=== PATIENT | female | born 1970 | race Caucasian/White ===

== ENCOUNTER → 2017-11-28 03:02 | Outpatient (CLI) | payer OTHER, SELFPAY ==
[2017-11-28 11:00] LABS: ALT 31 U/L (12-78); AST 12 U/L (15-37); Albumin 3.8 g/dL (3.4-5.0); Alkaline Phosphatase 71 U/L (46-116); Anion Gap 9.8 mmol/L (3-11); BUN 8 mg/dL (7-18); Bilirubin, Total 0.6 mg/dL (0.2-1.0); CO2 26.2 mmol/L (21.0-32.0); CREATININE 0.67 mg/dL (0.55-1.02); Calcium 8.7 mg/dL (8.5-10.1); Chloride 103 mmol/L (98-107); Cholesterol 224 mg/dL (50-200); Glucose 86 mg/dL (70-100); HDL Cholesterol 59 mg/dL (40-60); LDL CHOLESTEROL 151 mg/dL (<100); Potassium 4.3 mmol/L (3.5-5.1); Sodium 139 mmol/L (136-145); TSH (W/Ref FT4) 2.66 uIU/mL (0.358-3.74); Total Protein 6.8 g/dL (6.4-8.2); Triglyceride 85 mg/dL (30-150)
== END ==
DX: Z00.00 Encounter for general adult medical examination without abnormal findings (principal); F32.9 Major depressive disorder, single episode, unspecified; G43.909 Migraine, unspecified, not intractable, without status migrainosus; L28.0 Lichen simplex chronicus; M54.5 Low back pain; Z83.49 Family history of other endocrine, nutritional and metabolic diseases; Z13.220 Encounter for screening for lipoid disorders
CPT/HCPCS: 36415; 80053; 80061; 83721; 84443

== ENCOUNTER 2018-01-29 00:59 | Outpatient (CLI) | payer OTHER, SELFPAY ==
--- NOTE | 2018-01-29 11:25 | DI.MRI_ITS ---
SYMPTOM/DIAGNOSIS: SCIATICA, RADICULOPATHY, M54.16, M54.2, G89.29, CHRONIC LOW BACK PAIN LUMBOSACRAL SPINE MRI: MRI examination of the lumbosacral spine was performed according to the usual protocol. There is an apparent bilateral L 5 spondylolysis without spondylolisthesis. There is very prominent hypertrophic facet arthropathy at L 4-5 and to a lesser degree, L 5-S 1. There is a mild anterior pseudospondylolisthesis of L 4 on L 5. There is moderate central canal spinal stenosis at L 4-5 secondary to facet hypertrophy. Additionally I would note that there are small synovial cysts associated with both right and left facet joints at L 4-5. The left synovial cyst impinges the left lateral recess at this level. Neural foramina appear fairly well preserved throughout. No other significant central canal spinal stenosis is seen. There is a small right paracentral disc herniation at L 3-4. No additional disc herniation is seen. Conus medullaris appears intact. CONCLUSION: 1. Moderate to severe central canal spinal stenosis at L 4-5 secondary to facet hypertrophic changes and presumed synovial cysts as described above. 2. Small right paracentral disc herniation at L 3-4. 3. 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
== END 2018-01-29 01:19 ==
DX: M54.30 Sciatica, unspecified side (principal); M54.5 Low back pain; M54.16 Radiculopathy, lumbar region; M51.16 Intervertebral disc disorders with radiculopathy, lumbar region; M43.06 Spondylolysis, lumbar region; M48.061 Spinal stenosis, lumbar region without neurogenic claudication; G89.29 Other chronic pain
CPT/HCPCS: 72148

== ENCOUNTER 2018-05-23 01:59 | Outpatient (CLI) | payer OTHER, SELFPAY ==
[2018-05-23 09:08] LABS: ALT 41 U/L (12-78); AST 15 U/L (15-37); Albumin 3.6 g/dL (3.4-5.0); Alkaline Phosphatase 65 U/L (46-116); Anion Gap 8.7 mmol/L (3-11); BUN 12 mg/dL (7-18); Bilirubin, Total 0.5 mg/dL (0.2-1.0); CO2 28.3 mmol/L (21.0-32.0); CREATININE 0.69 mg/dL (0.55-1.02); Calcium 9.2 mg/dL (8.5-10.1); Chloride 105 mmol/L (98-107); Cholesterol 225 mg/dL (50-200); Glucose 90 mg/dL (70-100); HDL Cholesterol 57 mg/dL (40-60); LDL CHOLESTEROL 151 mg/dL (<100); Potassium 4.4 mmol/L (3.5-5.1); Sodium 142 mmol/L (136-145); Total Protein 6.7 g/dL (6.4-8.2); Triglyceride 96 mg/dL (30-150)
== END 2018-05-23 02:19 ==
DX: Z00.00 Encounter for general adult medical examination without abnormal findings (principal); I10 Essential (primary) hypertension; F32.9 Major depressive disorder, single episode, unspecified; G43.909 Migraine, unspecified, not intractable, without status migrainosus; M54.30 Sciatica, unspecified side; M54.5 Low back pain; M79.605 Pain in left leg
CPT/HCPCS: 36415; 80053; 80061; 83721

== ENCOUNTER 2018-07-17 01:35 | Outpatient (CLI) | payer OTHER, SELFPAY ==
--- NOTE | 2018-07-17 08:30 | DI.MAMMO_ITS ---
SYMPTOM/DIAGNOSIS: SCREENING, Z12.31 MAMMOGRAMS: Mammograms were interpreted according to the usual protocol including computer analysis with CAD system, tomosynthesis and C view imaging. The breast tissue is heterogenously radiodense which somewhat lowers the sensitivity of the study. There is no dominant mass. There are no suspicious calcifications and there has been no significant interval change when compared with prior images. IMPRESSION: Category 1. Yearly screening mammography is recommended. Breast density, Category C. SA ASSESSMENT OF FINDINGS: Negative. Category 1. Patient will receive a letter notifying them of these results. Bi-RADS category C. The breasts are heterogeneously dense, which may obscure small masses.
== END 2018-07-17 01:55 ==
DX: Z12.31 Encounter for screening mammogram for malignant neoplasm of breast (principal)
CPT/HCPCS: 77063; 77067

== ENCOUNTER 2019-08-23 09:03 | Outpatient (CLI) | payer OTHER, SELFPAY ==
--- NOTE | 2019-08-23 12:56 | DI.MAMMO_ITS ---
EXAM: MAMMO SCREENING CLINICAL HISTORY: screening,Z12.39 TECHNIQUE: Mammograms were interpreted according to the usual protocol including computer analysis w [employer] CAD system, tomosynthesis and C-view imaging. COMPARISON: 2013 through 2018 FINDINGS: The breasts are composed of heterogeneously dense fibroglandular densities, Breast Density category C . No suspicious masses or suspicious microcalcifications are seen. No skin thickening or abnormal axillary lymph nodes are seen. There has been no significant change from prior exams. IMPRESSION: BI-RADS Category 1: Negative mammogram. Yearly screening mammography is recommended. Breast density category C, heterogeneously dense tissue which decreases the sensitivity of the mammog elena. The mammogram demonstrates the patient's breast tissue is dense. Dense breast tissue is very common a nd is not abnormal but dense breast tissue can make it harder to find cancer on a mammogram. Also, de nse breast tissue may increase breast cancer risk. This information about the result of the mammogram report was provided to the patient to raise their awareness. Use this report when you speak with the patient about their risks for breast cancer, which includes their family history. At that time, you may recommend additional screening tests (Ultrasound or MRI) as they might be useful based on their r isk. A negative radiographic report should not delay biopsy if a dominant or clinically suspicious mass is present. Up to ten percent of cancers are not identified on mammography. A negative report may reinforce clinical impression. Adenosis and dense breasts may obscure an underlying neoplasm. False positive reports average 6 to 10%.
== END 2019-08-23 09:23 ==
DX: Z12.31 Encounter for screening mammogram for malignant neoplasm of breast (principal)
CPT/HCPCS: 77063; 77067

== ENCOUNTER 2019-09-04 01:06 | Outpatient (CLI) | payer OTHER, SELFPAY ==
[2019-09-04 08:26] LABS: ALT 32 U/L (14-59); AST 14 U/L (15-37); Albumin 3.6 g/dL (3.4-5.0); Alkaline Phosphatase 71 U/L (46-116); Anion Gap 8.6 mmol/L (3-11); BUN 12 mg/dL (7-18); Bilirubin, Total 0.5 mg/dL (0.2-1.0); CO2 27.4 mmol/L (21.0-32.0); CREATININE 0.61 mg/dL (0.55-1.02); Calcium 8.7 mg/dL (8.5-10.1); Calculated LDL 146 mg/dL (<100); Chloride 103 mmol/L (98-107); Cholesterol 218 mg/dL (<200); Glucose 92 mg/dL (74-106); HDL Cholesterol 54 mg/dL (40-60); Potassium 4.3 mmol/L (3.5-5.1); Sodium 139 mmol/L (136-145); TSH (W/Ref FT4) 3.02 uIU/mL (0.36-3.74); Total Protein 6.5 g/dL (6.4-8.2); Triglyceride 93 mg/dL (<150)
== END 2019-09-04 01:26 ==
DX: I10 Essential (primary) hypertension (principal); E03.9 Hypothyroidism, unspecified; G47.00 Insomnia, unspecified
CPT/HCPCS: 36415; 80053; 80061; 84443

== ENCOUNTER 2020-05-25 09:52 | Outpatient (REF) | payer OTHER, SELFPAY ==
--- NOTE | 2020-05-25 08:30 | PAPFT_PTH ---
PATIENT: Roxana Olivier LOC: [facility] U#:[id number] AGE/SX: 50/F ROOM: RE05/25/[address]: Reba Wu APRN : 1970 BED: DIS: 05/25/2020 SPEC #: [id number] RECD: 05/25/20 12:58 STATUS: SHAHID REKatrin #: [id number] MEETA: 05/25/20 08:[address]: Reba Wu DEPT: [facility] Cytology RECD BY: Cristina High Tissues: 1 - CX/ENDOCX FOR PAP SMEARS Procedures: PAP THIN PREP/UVM Screening HPV DNA PROBE Comments: [id number]
== END 2020-05-25 09:53 | disposition home or self-care (01) ==
LOC: LBN 09:52
DX: Z12.4 Encounter for screening for malignant neoplasm of cervix (principal); Z11.51 Encounter for screening for human papillomavirus (HPV)
CPT/HCPCS: 88142; 87624

== ENCOUNTER 2020-07-30 07:18 | Outpatient (CLI) | payer OTHER, SELFPAY ==
[2020-07-31 01:15] LABS: COVID-19 RT-PCR UVMMC Result Negative (Negative)
== END 2020-07-30 07:19 | disposition home or self-care (01) ==
DX: Z20.822 Contact with and (suspected) exposure to COVID-19 (principal)
CPT/HCPCS: U0003

== ENCOUNTER 2020-08-14 06:25 | Outpatient (CLI) | payer OTHER, SELFPAY ==
[2020-08-14 07:47] LABS: ALT 29 U/L (14-59); AST 12 U/L (15-37); Albumin 3.8 g/dL (3.4-5.0); Alkaline Phosphatase 68 U/L (46-116); Anion Gap 7.5 mmol/L (3-11); BUN 13 mg/dL (7-18); Bilirubin, Total 0.3 mg/dL (0.2-1.0); CO2 27.5 mmol/L (21.0-32.0); CREATININE 0.7 mg/dL (0.55-1.02); Calcium 9.1 mg/dL (8.5-10.1); Chloride 106 mmol/L (98-107); Glucose 97 mg/dL (74-106); Potassium 4.4 mmol/L (3.5-5.1); Sodium 141 mmol/L (136-145); Total Protein 6.8 g/dL (6.4-8.2)
== END 2020-08-14 06:26 | disposition home or self-care (01) ==
LOC: LBO 06:26
DX: Z00.00 Encounter for general adult medical examination without abnormal findings (principal); Z13.228 Encounter for screening for other metabolic disorders
CPT/HCPCS: 80053

== ENCOUNTER 2021-06-28 00:21 | Outpatient (CLI) | payer OTHER, SELFPAY ==
--- NOTE | 2021-06-28 08:15 | DI.MAMMO_ITS ---
Exam(s) MAMMO SCREENING EXAM: MAMMO SCREENING CLINICAL HISTORY: screening,Z12.39 TECHNIQUE: Mammograms were interpreted according to the usual protocol including computer analysis w [employer] CAD system, tomosynthesis and C-view imaging. COMPARISON: 2013 through 2019 FINDINGS: The breasts are composed of heterogeneously dense fibroglandular densities, Breast Density category C . No suspicious masses or suspicious microcalcifications are seen. No skin thickening or abnormal axillary lymph nodes are seen. There has been no significant change from prior exams. IMPRESSION: BI-RADS Category 1, Negative mammogram. Yearly screening mammography is recommended. Breast Density Category C, heterogeneously Dense. The mammogram demonstrates the patient's breast tissue is dense. Dense breast tissue is very common a nd is not abnormal but dense breast tissue can make it harder to find cancer on a mammogram. Also, de nse breast tissue may increase breast cancer risk. This information about the result of the mammogram report was provided to the patient to raise their awareness. Use this report when you speak with the patient about their risks for breast cancer, which includes their family history. At that time, you may recommend additional screening tests (Ultrasound or MRI) as they might be useful based on their r isk. A negative radiographic report should not delay biopsy if a dominant or clinically suspicious mass is present. Up to ten percent of cancers are not identified on mammography. A negative report may reinforce clinical impression. Adenosis and dense breasts may obscure an underlying neoplasm. False positive reports average 6 to 10%.
== END 2021-06-28 00:41 ==
DX: Z12.31 Encounter for screening mammogram for malignant neoplasm of breast (principal)
CPT/HCPCS: 77063; 77067

== ENCOUNTER 2021-12-02 04:10 | Outpatient (CLI) | payer OTHER, SELFPAY ==
[2021-12-02 13:03] LABS: ALT 37 U/L (14-59); AST 17 U/L (15-37); Albumin 3.8 g/dL (3.4-5.0); Alkaline Phosphatase 68 U/L (46-116); Anion Gap 4.1 mmol/L (3-11); BUN 10 mg/dL (7-18); Bilirubin, Total 0.5 mg/dL (0.2-1.0); CO2 32.9 mmol/L (21.0-32.0); CREATININE 0.7 mg/dL (0.55-1.02); Calcium 8.8 mg/dL (8.5-10.1); Chloride 105 mmol/L (98-107); Glucose 101 mg/dL (74-106); Potassium 4.1 mmol/L (3.5-5.1); Sodium 142 mmol/L (136-145); TSH (W/Ref FT4) 3.03 uIU/mL (0.36-3.74); Total Protein 7.1 g/dL (6.4-8.2)
== END 2021-12-02 04:11 | disposition home or self-care (01) ==
LOC: LOS 04:10
DX: Z00.00 Encounter for general adult medical examination without abnormal findings (principal); G47.00 Insomnia, unspecified; E66.9 Obesity, unspecified; F32.89 Other specified depressive episodes
CPT/HCPCS: 36415; 80053; 84443

== ENCOUNTER 2022-01-28 06:11 | Day surgery (SDC) | payer OTHER, SELFPAY ==
--- NOTE | 2022-01-27 21:39 | W.COLOREPORT ---
Colonoscopy Report Date of procedure: 01/28/22 Pre-op diagnosis general: CRC screen Post-op diagnosis procedure note: other (Right-sided diverticula and polyp) Surgeon: Shawna Villar Anesthesia Type: General:No Airway Estimated blood loss (mL): 1 Pathology: other Complications: None Disposition: same day Prep: Miralax/Dulcolax Retraction Time: 15 Procedure Description: After informed consent was obtained the patient was taken to the procedure room and placed in a left decubitous position. Monitors were applied and a time out was done. The patients name, date of , procedure, allergies to medications and metal in their body was reviewed. The patient was then sedated. Once sedated and comfortable a rectal exam was done. External exam was normal. Internal exam revealed a normal sphincter tone and no palpable masses. The scope was then introduced and retrofelexed. No internal hemorrhoids were identified. The scope was then advanced to the cecum without difficulty. The TI and appendiceal orifice were identified. The prep was BB PS 3 in all segments for a total of 9. The scope was then slowly retracted over 15 minutes back into the rectum. She had very few, [place] diverticuli in the right colon. There are no diverticuli in the sigmoid colon. She had 2 polyps removed one is a 70 cm it is 0.75 cc and pedunculated. Is removed with a cold snare. All specimen is retrieved and no bleeding is noted. A second polyp is at 80 cm. It is 0.6 cm it is removed with a cold snare. All specimen is retrieved and no bleeding is noted. The mucosa is pink and healthy with a normal vascular pattern. The scope was removed and the patient was woken up and taken back to Same day surgery in stable condition. The patient tolerated the procedure well and there were no immediate complications. Follow up: The patient should follow up in 7 years, path pending, unless they develop changes in bowel habits or other new gastrointestinal complaints.
--- NOTE | 2022-01-27 21:40 | PDOC.DSDIS_ITS ---
Discharge Plan Disposition Patient Disposition: HOME Condition: Good Discharge Details Reason For Visit: Colonoscopy Attending Provider: Shawna Villar Primary Care Provider: Reba Wu Home Meds and New Rx's Prescriptions: No Action Centrum Silver Women 8 mg iron-400 mcg-300 mcg tablet 1 tab PO DAILY cholecalciferol (vitamin D3) 25 mcg (1,000 unit) capsule 25 mcg PO DAILY magnesium oxide 400 mg magnesium tablet 400 mg PO DAILY ibuprofen 200 MG capsule 2 tab PO daily prn Excedrin Extra Strength 1 EACH tablet 2 ea PO daily prn trazodone 50 mg tablet 50 mg PO QHS PRN (Reason: insomnia) Qty: 90 3RF sertraline 100 mg tablet 100 mg PO DAILY Qty: 90 3RF Discharge Instructions Additional Instructions: DSU Colonoscopy Post- Op Instructions Instructions for Everyone who is given Anesthesia: For your safety, please do the following for the next twenty-four (24) hours: *Do Not operate a motor vehicle (car, truck, motorcycle, etc.) *Do Not drink alcoholic beverages or use any recreational drugs for the first 24 hours or while taking pain medications. The medications in your body may have a reaction that can be dangerous. *Do Not make any important decisions or sign any important papers. Findings: Polyps x2 Right-sided diverticula Follow up: My office will send a letter in 2 to 3 weeks time with the results of the pathology and when to repeat the colonoscopy 1. No lifting over 20 pounds or strenuous activity for the first 24 hours after your procedure. After 24 hours there are no restrictions on your activity but you may feel fatigued for a few days. 2. After you arrive home you may have a light meal and return to your normal diet as you can tolerate it without feeling sick to your stomach. 3. You may have a bloated, gaseous feeling in your belly (abdomen) after a colonoscopy. Passing gas and belching will help. Walking or lying down on your left side with your knees flexed may relieve the discomfort. Call the office at [phone] (Office) or [phone] (Hospital) right away if you notice any of the following: a.Vomiting of blood or ?coffee ground stools?. b.Rectal bleeding 1Tbsp, blood clots or continuous bleeding. c.Severe belly (abdominal) pain. d.A hard distended belly (abdomen) and an inability to pass gas. 4. Please don?t expect to have a normal BM (bowel movement) for 2-3 days after your procedure. 5. If there are questions regarding the findings of your procedure, please conta ct your doctor 6. If you are unable to contact your doctor with a problem, contact the hospital at [phone]. 7. Continue all your regular medications unless directed otherwise. I understand the above instructions and have no questions. Signature of Patient or Adult Escort Name of Responsible Adult Escort Signature of Nurse Date/Time Activity:: see above Diet:: see above Discharge Orders Discharge Orders: Discharge Order (Routine); Ordered 01/27/22 Ordered By: Shawna Villar
--- NOTE | 2022-01-28 06:12 | ANES.PREOP_ITS ---
General Info Date of Service Date Performed: 01/28/22 Height: 5 ft 1 in Weight: 70.307 kg Body Mass Index (BMI): 29.2 Surgical Procedure: Operation Date: 01/28/22 07:35 Proposed Procedure Side Surgeon p Colonoscopy Possible Polypectomy Shawna Villar, DO Meds Allergies and Home Medications Allergies Allergy/AdvReac Type Severity Reaction Status Date / Time No Known Allergies Allergy Verified 01/26/22 12:09 Home Medication Medication Instructions Recorded ibuprofen 200 mg capsule 2 tab PO daily prn 04/19/13 kptolgj-ajvziydobtmqz-sikhubul 250 2 ea PO daily prn 05/05/15 mg-250 mg-65 mg tablet (Excedrin Extra Strength) cholecalciferol (vitamin D3) 25 25 mcg PO DAILY 08/16/21 mcg (1,000 unit) capsule magnesium oxide 400 mg PO DAILY 08/16/21 multivit with 1 tab PO DAILY 08/16/21 fcvqvnbk-lyua-YW-lutein 8 mg iron-400 mcg-300 mcg tablet (Centrum Silver Women) sertraline 100 mg tablet 100 mg PO DAILY #90 tabs 12/06/21 trazodone 50 mg tablet 50 mg PO QHS PRN insomnia #90 tabs 12/06/21 Current Visit Medications: Current Medications Generic Name Dose Route Start Last Admin Trade Name Freq PRN Reason Stop Dose Admin Hyoscyamine Sulfate 0.125 mg 01/27/22 21:38 Hyoscyamine 0.125 Mg Sl/Oral/Chew SL DIRECTED PRN Ringer's Solution 1,000 mls @ 80 mls/hr 01/28/22 06:00 IV 01/28/22 23:59 INFUSION [facility] IV Miscellaneous Supplies 1 each 01/28/22 06:00 Iv Access IV 01/28/22 23:59 DIRECTED PA Ondansetron HCl 4 mg 01/27/22 21:38 Ondansetron 4 Mg/2 Ml Vial IVP Q4H PRN PRN Nausea / Vomiting Sodium Chloride 0 ml 01/28/22 06:00 Normal Saline Flush 10 Ml Syr IV 01/28/22 23:59 PRN PRN Sodium Chloride 0 ml 01/28/22 06:00 Normal Saline 10 Ml Vial IJ 01/28/22 23:59 DIRECTED PRN Sterile Water 0 ml 01/28/22 06:00 Water,Injection,Sterile 10 Ml Vial IJ 01/28/22 23:59 DIRECTED PRN PFSH Active Problems Active Problems: Problem Status Onset Code Depressive disorder 04/12/12 F32.9 Menorrhagia 03/30/17 N92.0 Migraine G43.909 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 Sciatica M54.30 Attention deficit hyperactivity disorder, 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.00 Urinary incontinence in female R32 Obesity (BMI 30-39.9) E66.9 Labial lesion N90.89 Medical History Medical History Chronic pain of left knee (05/10/16) 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 Spinal stenosis moderate L4-5 Suspected sleep apnea NEGATIVE sleep study Surgical History Surgical History Mole removal Tobacco Smoking/Tobacco Use Status: Never Passive smoking exposure: No Alcohol Alcohol Intake: current Alcohol intake frequency: a few times a month Alcohol type: wine Substance Use Substance use: Never Substance use type: does not use Counseling provided: none Vital Signs and Lab Results Vital Signs Most Recent Vital Signs in EMR: Temp Pulse Resp BP Pulse Ox 36.6 C 82 20 134/82 20 L 01/28/22 06:35 01/28/22 06:35 01/28/22 06:35 01/28/22 06:35 01/28/22 06:35 Lab Results Blood Type / Crossmatch: No Data to Display Complete Blood Count: No Data to Display Complete Metabolic Panel: No Data to Display Liver Function Panel: No Data to Display Coagulation Panel: No Data to Display Cardiac Panel: No Data to Display Arterial Blood Gas: No Data to Display Venous Blood Gas: No Data to Display Pancreas Panel: No Data to Display Thyroid Panel: No Data to Display Infectious Disease: No Data to Display Blood Cultures: No Data to Display Toxicology Panel: No Data to Display Panel: No Data to Display Anesthesia Assessment and Plan Anesthesia History Personal History: No History of General Anesthesia Family History: Family History Unknown Exercise Tolerance Exercise Tolerance: Metabolic Equivalents>4 Cardiac & Pulmonary Exam Cardiac Exam: Normal S1/S2 Heart Sounds Pulmonary Exam: Clear Bilateral Breath Sounds Implantable Cardiac Device Does patient have a Pacemaker or an ICD?: No Airway Exam Known Difficult Airway: No Mallampati Class: 2 Mouth Opening: Normal (> 3cm) Thyromental Distance: Greater than 3 cm Neck Range of Motion: Full ROM Neck Circumference: Normal Teeth Condition: Normal Dentition ASA Classification ASA Score: ASA 2 Emergency Case?: No NPO Status NPO Status: NPO Clears >2 hours, Solids >8 hours Status Status: Negative HCG Anesthesia Plan Resuscitation Status: Full Code Anesthesia Technique: General Anesthesia Airway Planned: Natural Airway Monitors Used: Standard Monitors Preoperative Comments:: 51 yo female for screening colo. Sig PMHx: depression/ADD (sertraline), migrain, sciatica, spinal stenosis l4-5, never smoker, occ EtOH.
[2022-01-28 06:35] VITALS: BP 134/82; PULSE 82; RESP 20; TEMP 36.6; O2SAT 20
[2022-01-28] MEDS: Lactated Ringers 1,000 ML 80 ML IV (06:51)
[2022-01-28 07:21] VITALS: BMI 29.2
--- NOTE | 2022-01-28 07:45 | BOWEL_PTH ---
PATIENT: Roxana Olivier LOC: [facility] U#:[id number] AGE/SX: 51/F ROOM: RE01/28/[address]: Shawna Villar : 1970 BED: DIS: 01/28/2022 SPEC #: [id number] RECD: 01/28/22 12:27 STATUS: SHAHID RE #: [id number] MEETA: 01/28/22 07:[address]: Shawna Villar DEPT: Surgical Specimen RECD BY: Cristina High ENTERED: 01/28/22 12:31 SP TYPE: Bowel OTHR DR: Reba Wu APRN Tissues: 1 - BIOPSY BOWEL 2 - BIOPSY BOWEL Procedures: GROSS AND MICRO LEVEL 4 Comments: [id number]
[2022-01-28 08:16] VITALS: BP 134/77; PULSE 65; RESP 12; TEMP 36.2; O2SAT 97
--- NOTE | 2022-01-28 08:25 | W.ANESPOSTOP ---
Postoperative Evaluation Date, Time and Location Date Performed: 01/28/22 Time Performed: 08:25 Patient Location: Day Surgery Unit Vital Signs Most Recent Imported Vital Signs: Most Recent Vital Signs Temp Pulse Resp BP Pulse Ox 36.2 C L 65 12 134/77 97 01/28/22 08:16 01/28/22 08:16 01/28/22 08:16 01/28/22 08:16 01/28/22 08:16 Pain Score Most Recent Pain Score: Most Recent Pain Score Pain Level 0 01/28/22 08:16 Assessment Mental Status: Awake (Alert & Oriented to Patient Baseline) Airway and Respiratory Function: Patent airway with normal (patient baseline) respiratory exam Cardiovascular Function: Hemodynamically Stable Hydration Status: Adequately Hydrated Nausea & Vomiting: No Nausea or Vomiting Pain: Pt. Denies Any Pain Peripheral Nerve Block: Patient did not receive a nerve block
[2022-01-28 08:46] VITALS: BP 130/82; PULSE 69; RESP 16; TEMP 36.4; O2SAT 97
== END 2022-01-28 09:10 | disposition home or self-care (01) ==
PROVIDERS: Visit Provider Surgery
PROC: 0DJD8ZZ Inspection of Lower Intestinal Tract, Via Natural or Artificial Opening Endoscopic (ICD-10-PCS; CPT 45378; principal; 2022-01-28 07:30)
DX: Z12.11 Encounter for screening for malignant neoplasm of colon (principal); K63.5 Polyp of colon; K57.30 Diverticulosis of large intestine without perforation or abscess without bleeding
CPT/HCPCS: 45385; 81025; 88305

== ENCOUNTER 2022-06-29 01:18 | Outpatient (CLI) | payer OTHER, SELFPAY ==
--- NOTE | 2022-06-29 07:15 | DI.MAMMO_ITS ---
Exam(s) MAMMO SCREENING EXAM: MAMMO SCREENING CLINICAL HISTORY: screening,Z12.39 TECHNIQUE: Bilateral full field digital CC and MLO mammographic images were obtained with 3D tomosyn thesis and utilizing computer aided detection (CAD). COMPARISON: Available for comparison. FINDINGS: Masses/Architectural Distortion: None seen. Microcalcifications: No suspicious pleomorphic-type are seen. Skin Thickening/Nipple Retraction: None. IMPRESSION: 1. No significant interval change with no specific features of malignancy noted. 2. Unless there is more urgent need, screening mammography is recommended, as per [employer] guidelines. BI-RADS Category 1 - Negative Breast Density - Category C - Heterogeneously dense Breast density category C or D implies that the patient has dense breast tissue. Dense breast tissue is very common and is not abnormal but dense breast tissue can make it harder to find cancer on a ma mmogram. Also, dense breast tissue may increase their breast cancer risk. This information about the result of the mammogram report was provided to the patient to raise their awareness. Use this report when you speak with the patient about their risks for breast cancer, which includes their family hist ory. At that time, you may recommend for more screening tests (Ultrasound or MRI) as they might be us eful based on their risk. A negative radiographic report should not delay biopsy if a dominant or clinically suspicious mass is present. Up to ten percent of cancers are not identified on mammography. A negative report may reinforce clinical impression. Adenosis and dense breasts may obscure an underlying neoplasm. False positive reports average 6 to 10%. Patient will receive a letter notifying them of these results.
== END 2022-06-29 01:38 ==
LOC: DI 01:18
PROVIDERS: PCP Nurse Practitioner Family
DX: Z12.31 Encounter for screening mammogram for malignant neoplasm of breast (principal)
CPT/HCPCS: 77063; 77067

== ENCOUNTER 2022-07-06 03:29 | Outpatient (CLI) | payer OTHER, SELFPAY ==
[2022-07-06 10:12] LABS: ALT 29 U/L (14-59); AST 14 U/L (15-37); Albumin 3.7 g/dL (3.4-5.0); Alkaline Phosphatase 78 U/L (46-116); Anion Gap 6.6 mmol/L (3-11); BUN 13 mg/dL (7-18); Bilirubin, Total 0.2 mg/dL (0.2-1.0); CO2 28.4 mmol/L (21.0-32.0); CREATININE 0.6 mg/dL (0.55-1.02); Calculated LDL 171 mg/dL (<100); Chloride 104 mmol/L (98-107); Cholesterol 252 mg/dL (<200); Estimated GFR 109.28 (mL/min/1.73m2); Glucose 95 mg/dL (74-106); HDL Cholesterol 65 mg/dL (40-60); Potassium 3.8 mmol/L (3.5-5.1); Sodium 139 mmol/L (136-145); Total Protein 7.1 g/dL (6.4-8.2); Triglyceride 82 mg/dL (<150)
== END 2022-07-06 03:30 | disposition home or self-care (01) ==
LOC: LBO 03:29
PROVIDERS: PCP Nurse Practitioner Family; Visit Provider Nurse Practitioner Family
DX: E66.8 Other obesity (principal); Z13.220 Encounter for screening for lipoid disorders
CPT/HCPCS: 36415; 80053; 80061

== ENCOUNTER → 2023-07-04 02:17 | Outpatient (CLI) | payer OTHER, SELFPAY ==
--- NOTE | 2023-07-04 08:30 | DI.MAMMO_ITS ---
Exam(s) MAMMO SCREENING EXAM: MAMMO SCREENING CLINICAL HISTORY: screening Z12.39 SCREENING FOR BREAST CANCER. TECHNIQUE: Bilateral full field digital CC and MLO mammographic images were obtained with 3D tomosyn thesis and utilizing computer aided detection (CAD). COMPARISON: Prior mammograms were reviewed. FINDINGS: There has been no significant change in the appearance and distribution of the fibroglandular tissue. Benign-appearing asymmetric density in the lateral aspect of the left breast is unchanged from prior mammograms. Probably represents a benign intramammary lymph node. There are no new spiculated masses nor malignant appearing microcalcification groups. There is no significant architectural distortion nor skin thickening-retraction. IMPRESSION: No radiographic evidence of malignancy. BI-RADS Category 2 - Benign Findings Breast Density - Category C - Heterogeneously dense Breast density Category C or D implies that the patient has dense breast tissue. Dense breast tissue can make it harder to find cancer on a mammogram. Dense breast tissue is also associated with an incr eased risk of breast cancer. This information about the result of the mammogram report was provided to the patient to raise their awareness. Use this report when you speak with the patient about their risks for breast cancer, which includes their family history. At that time, you may recommend additional screening tests (Ultrasoun d or MRI) as these tests may add significant information. A negative radiographic report should not delay biopsy if a dominant or clinically suspicious mass is present. Up to ten percent of cancers are not identified on mammography. A negative report may reinforce clinical impression. Adenosis and dense breasts may obscure an underlying neoplasm. False positive reports average 6 to 10%. Patient will receive a letter notifying them of these results.
== END ==
PROVIDERS: PCP Nurse Practitioner Family; Visit Provider Nurse Practitioner Family
DX: Z12.31 Encounter for screening mammogram for malignant neoplasm of breast (principal)
CPT/HCPCS: 77063; 77067

== ENCOUNTER 2023-10-20 09:25 | Outpatient (CLI) | payer OTHER, SELFPAY ==
--- NOTE | 2023-10-20 09:15 | RT.EKG_ITS ---
APPROVED REPORT Exam: Resting ECG Reason for Exam: medication monitoring Patient Location: O HR:72 bpm ECG Measurements Heart Rate 72 AXIS OK 171 P 59 QRSd 100 QRS -37 QT 413 T 56 QTc 453 Conclusion Sinus rhythm...normal P axis, V-rate 50- 99 Probable left atrial enlargement...P >50mS, <-0.10mV V1 Left axis deviation...QRS axis (-30,-90)
== END 2023-10-20 09:26 | disposition home or self-care (01) ==
LOC: DI.CM 09:26
PROVIDERS: PCP Nurse Practitioner Family; Visit Provider Nurse Practitioner Family
DX: Z51.81 Encounter for therapeutic drug level monitoring (principal); R94.31 Abnormal electrocardiogram [ECG] [EKG]; I51.7 Cardiomegaly
CPT/HCPCS: 93010

== ENCOUNTER 2024-02-22 08:55 | Outpatient (CLI) | payer OTHER, SELFPAY ==
[2024-02-22 16:02] LABS: TSH (W/Ref FT4) 2.29 uIU/mL (0.36-3.74); Vitamin D 25 Total 18.9 ng/mL (30-100)
== END 2024-02-22 08:56 | disposition home or self-care (01) ==
LOC: LBO 08:55
PROVIDERS: PCP Nurse Practitioner Family; Visit Provider Obstetrics & Gynecology
DX: N92.0 Excessive and frequent menstruation with regular cycle (principal); R53.83 Other fatigue
CPT/HCPCS: 36415; 82306; 84443

== ENCOUNTER 2024-05-30 03:17 | Outpatient (CLI) | payer OTHER, SELFPAY ==
[2024-05-30 09:28] LABS: ALT 38 U/L (14-59); AST 16 U/L (15-37); Albumin 3.7 g/dL (3.4-5.0); Alkaline Phosphatase 93 U/L (46-116); Anion Gap 6.4 mmol/L (3-11); BUN 10 mg/dL (7-18); Bilirubin, Total 0.51 mg/dL (0.2-1.0); CO2 30.6 mmol/L (21.0-32.0); CREATININE 0.8 mg/dL (0.55-1.02); Chloride 105 mmol/L (98-107); Glucose 93 mg/dL (74-106); Potassium 3.8 mmol/L (3.5-5.1); Sodium 142 mmol/L (136-145); Total Protein 7.3 g/dL (6.4-8.2); Vitamin D 25 Total 25.9 ng/mL (30-100)
[2024-06-03 17:42] LABS: Apolipoprotein B, Serum 112 mg/dL (48-124); Beta VLDL Cholesterol Not Detected mg/dL (<15); Beta VLDL Triglycerides Not Detected mg/dL (<15); Cholesterol, Total, CDC 234 mg/dL; Chylomicron Cholesterol Not Detected; Chylomicron Triglycerides Not Detected; HDL Cholesterol, CDC 55 mg/dL (>=50); LDL Cholesterol 159 mg/dL; LDL Triglycerides 40 mg/dL (<=50); Lp(a) Cholesterol <5 mg/dL (<5); LpX Not detected; Triglycerides, CDC 94 mg/dL; VLDL Cholesterol 20 mg/dL (<30); VLDL Triglycerides 38 mg/dL (<120)
== END 2024-05-30 03:18 | disposition home or self-care (01) ==
LOC: LBO 03:17
PROVIDERS: PCP Nurse Practitioner Family; Visit Provider Nurse Practitioner Family
DX: Z13.220 Encounter for screening for lipoid disorders (principal); R79.89 Other specified abnormal findings of blood chemistry
CPT/HCPCS: 36415; 80053; 80061; 82306; 82172; 82664

== ENCOUNTER 2024-11-26 03:34 | Outpatient (CLI) | payer OTHER, SELFPAY ==
[2024-11-26 12:45] LABS: HCT 41.8 % (36.0-46.0); HGB 14.8 g/dL (11.2-15.7); MCH 32.1 pg (27.0-33.0); MCHC 35.4 % (32.0-36.0); MCV 91 fL (80-95); MPV 9.5 fL (8.0-11.0); Platelet Count 348 10^3/uL (130-400); RBC 4.61 10^6/uL (3.93-5.22); RDW 12.2 % (11.7-14.6); RDW-SD 40.1 fL; WBC 8.07 10^3/uL (4.4-10.8)
[2024-11-26 13:11] LABS: ALT 37 U/L (14-59); AST 16 U/L (15-37); Albumin 3.8 g/dL (3.4-5.0); Alkaline Phosphatase 84 U/L (46-116); Anion Gap 7.6 mmol/L (3-11); BUN 12 mg/dL (7-18); Bilirubin, Total 0.5 mg/dL (0.2-1.0); CO2 28.4 mmol/L (21.0-32.0); Calcium 9.1 mg/dL (8.5-10.1); Chloride 106 mmol/L (98-107); Estimated GFR 107.93 (mL/min/1.73m2); Glucose 121 mg/dL (74-106); Potassium 3.5 mmol/L (3.5-5.1); Sodium 142 mmol/L (136-145); Total Protein 7.1 g/dL (6.4-8.2)
== END 2024-11-26 03:35 | disposition home or self-care (01) ==
LOC: LBO 03:34
PROVIDERS: PCP Nurse Practitioner Family; Visit Provider Nurse Practitioner Family
DX: R19.7 Diarrhea, unspecified (principal)
CPT/HCPCS: 36415; 80053; 82784; 83516; 85027